=== PATIENT | male | born 1990 | race American Indian/Alaskan Native ===

== ENCOUNTER 2021-07-02 00:15 | Emergency (ER) | payer BC ==
--- NOTE | 2021-07-02 01:01 | XRay Report ---
CHEST 2 VIEWS INDICATION / CLINICAL INFORMATION: Chest pain. COMPARISON: None available. FINDINGS: SUPPORT DEVICES: None. HEART / MEDIASTINUM: The heart size and pulmonary vasculature are normal. The aorta is normal in [place]. LUNGS / PLEURA: No significant pulmonary or pleural abnormality. No pneumothorax. ADDITIONAL FINDINGS: No significant additional findings. IMPRESSION: No acute findings. Signer Name: Won Lorenzana MD Signed: 07/02/2021 12:57 AM Workstation Name: [id number]
--- NOTE | 2021-07-02 09:30 | Emergency Department Report ---
ED General Adult HPI - General Chief complaint: Chest Pain Stated complaint: CHEST PAIN Time Seen by Provider: 07/02/21 09:19 Source: patient Mode of arrival: Ambulatory Limitations: No Limitations - History of Present Illness Initial comments: 31-year-old male who denies any significant past medical history presents to the ER today with complaints of chest pain. Patient states her symptoms started 2 weeks ago. He states that he has been having substernal and left-sided chest pain. He states that his pain was initially constant but then he became intermittent and was improving, but then in the past couple days pain started to flareup again and became more constant. He states that when the pain started initially he was having associated left-sided neck pain and left shoulder pain which was worse when he moved his neck and his shoulder but the pain in his neck and shoulder has resolved. He denies any strenuous activity or injury. He stat es now he is just having the pain in his left chest and substernal area. He described as a sharp pain. He is unable to tell what makes it worse or better now. Reports associated shortness of breath which started last night and also today. He reports no lower extremity swelling or calf pain. He denies any URI symptoms, nausea, vomiting, fever, chills or diaphoresis or cough. He denies any history of tobacco use, or illicit drug use. He drinks occasionally. He denies any family history of coronary artery disease. He denies any history of PE or DVT noted to have any risk factors for PE or DVT. MD Complaint: Chest pain - Related Data Previous Rx's Medication Instructions Recorded Last Taken Type Amlodipine Besylate [Norvasc] 5 mg PO DAILY #30 tab 07/02/21 Unknown Rx Ketorolac [Toradol] 10 mg PO Q6H PRN #20 07/02/21 Unknown Rx Allergies Allergy/AdvReac Type Severity Reaction Status Date / Time No Known Allergies Allergy Unverified 07/02/21 00:20 ED Review of Systems ROS: Stated complaint: CHEST PAIN Other details as noted in HPI Comment: All other systems reviewed and negative Constitutional: denies: chills, diaphoresis, fever, malaise, weakness Eyes: denies: eye pain, eye discharge, vision change ENT: denies: ear pain, throat pain, dental pain, hearing loss, epistaxis, congestion Respiratory: shortness of breath. denies: cough, wheezing Cardiovascular: chest pain. denies: edema, syncope, paroxysmal nocturnal dyspnea Gastrointestinal: denies: abdominal pain, nausea, diarrhea, constipation, hematemesis, hematochezia Genitourinary: denies: urgency, dysuria, frequency, hematuria, discharge, testicular pain, testicular mass Skin: denies: rash, lesions, change in color, change in hair/nails, pruritus Neurological: denies: headache, weakness, numbness, paresthesias, confusion, abnormal gait, vertigo Psychiatric: denies: anxiety, depression, auditory hallucinations, visual hallucinations, homicidal thoughts, suicidal thoughts Hematological/Lymphatic: denies: as per HPI, easy bleeding, swollen glands ED Past Medical Hx - Medications Home Medications: Home Medications Medication Instructions Recorded Confirmed Last Taken Type Amlodipine Besylate [Norvasc] 5 mg PO DAILY #30 tab 07/02/21 Unknown Rx Ketorolac [Toradol] 10 mg PO Q6H PRN #20 07/02/21 Unknown Rx ED Physical Exam - General Limitations: No Limitations General appearance: alert, in no apparent distress - Head Head exam: Present: atraumatic, normocephalic, normal inspection - Eye Eye exam: Present: normal appearance, PERRL, EOMI Pupils: Present: normal accommodation - Neck Neck exam: Present: normal inspection, full ROM. Absent: meningismus - Respiratory Respiratory exam: Present: normal lung sounds bilaterally. Absent: respiratory distress, wheezes, rales, rhonchi - Cardiovascular Cardiovascular Exam: Present: regular rate, normal rhythm, normal heart sounds - GI/Abdominal GI/Abdominal exam: Present: soft. Absent: distended, tenderness, guarding, rebound - Extremities Exam Extremities exam: Present: normal inspection, full ROM - Neurological Exam Neurological exam: Present: alert, oriented X3, CN II-XII intact, normal gait - Psychiatric Psychiatric exam: Present: normal affect, normal mood - Skin Skin exam: Present: intact ED Course Vital Signs 07/02/21 07/02/21 07/02/21 00:22 00:23 00:24 Temperature 98.8 F Pulse Rate 97 H 98 H Respiratory Rate Blood Pressure 172/108 Blood Pressure [Right] O2 Sat by Pulse 100 99 100 Oximetry 07/02/21 07/02/21 09:32 11:36 Temperature Pulse Rate 75 80 Respiratory 16 16 Rate Blood Pressure Blood Pressure 160/113 148/109 [Right] O2 Sat by Pulse 99 99 Oximetry ED Medical Decision Making - Lab Data Result diagrams: 07/02/21 10:35 - EKG Data EKG shows normal: sinus rhythm Rate: normal No standard instances P Waves: LAE - Radiology Data Radiology results: report reviewed Patient: SANDRA LANCE MR#: [id number] : 1990 Acct:[id number] Age/Sex: 31 / M ADM Date: 07/02/21 Loc: ED Attending Dr: Ordering Physician: BRIONNA SALDANA MD Date of Service: 07/02/21 Procedure(s): XR chest routine 2V Accession Number(s): [id number] cc: ED MD SHANA Fluoro Time In Minutes: CHEST 2 VIEWS INDICATION / CLINICAL INFORMATION: Chest pain. COMPARISON: None available. FINDINGS: SUPPORT DEVICES: None. HEART / MEDIASTINUM: The heart size and pulmonary vasculature are normal. The aorta is normal in caliber. LUNGS / PLEURA: No significant pulmonary or pleural abnormality. No pneumothorax. ADDITIONAL FINDINGS: No significant additional findings. IMPRESSION: No acute findings. Signer Name: Won Lorenzana MD Signed: 07/02/2021 12:57 AM Workstation Name: [id number] Transcribed By: RT Dictated By: Won Lorenzana MD Electronically Authenticated By: Won Lorenzana MD Signed Date/Time: 07/02/2156 DD/ TD/TT: - Medical Decision Making Chest x-ray shows nothing acute. EKG shows no acute abnormalities. Troponin is normal. BMP is normal. Patient initially denied any past medical history but on repeat of his vitals it was noted as well pressure remained elevated. Upon further questioning patient admits that he was told that he has had hypertension in the past but he never follow-up with the primary care doctor to be started on blood pressure medications. He states that he does not like taking medications. Patient currently has a heart score of 1. He has a PERC score of 0. At this time I do not suspect unstable angina, pulmonary embolus, aortic dissection, or any other emergent condition warranting additional testing or a dmission at this time. Chest pain is likely Motrin as well at this time. Discussed results with patient. Discussed suspected diagnosis with patient patient will be started on low-dose Norvasc for his blood pressure and informed patient that it is important that he takes the medication. Also recommend that he checks his blood pressure twice a day, keep a record of the readings and he will be given referral information to local primary care doctors for follow-up. Patient expressed understanding for instructions and agree with plan. Patient was stable at time of discharge. Critical care attestation.: If time is entered above; I have spent that time in minutes in the direct care of this critically ill patient, excluding procedure time. ED Disposition Clinical Impression: Nonspecific chest pain, Chest wall pain, Uncontrolled hypertension Disposition: HOME / SELF CARE / HOMELESS Is pt being admited?: No Condition: Stable Instructions: Chest Wall Pain, [id number], Nonspecific Chest Pain, Adult, Hypertension, Adult, [id number], Managing Your Hypertension, Hypertension (ED) Additional Instructions: Recommend start taking the Norvasc which is for your blood pressure daily. Continue to monitor your blood pressure no more than twice a day and keep a record of your readings. You will need to follow-up with the primary care doctor for continued monitoring of your blood pressure. You can take the Toradol as prescribed to help with pain. Return to the ER if your symptoms changes or worsens in any way. Prescriptions: Amlodipine Besylate [Norvasc] 5 mg PO DAILY #30 tab Ketorolac [Toradol] 10 mg PO Q6H PRN #20 PRN Reason: Pain Referrals: ADITHYA YOUSIF MD [Staff Physician] - 3-5 Days [facility] [Provider Group] - 3-5 Days Forms: Work/School Release Form(ED) Time of Disposition: 11:31 Heart Score - HEART Score History: Slightly suspicious EKG: Normal Age: < 45 Risk factors: 1-2 risk factors (HTN) Troponin: < normal limit HEART Score: 1 - EKG Read Time Time EKG Completed: 00:26 EKG Read Time: 00:29 - Critical Actions Critical Actions: 0-3 pts:0.9-1.7%risk of adverse cardiac event.Candidate for discharge
[2021-07-02 11:08] LABS: Blood Urea Nitrogen 9 mg/dL (9-20); Calcium 9.7 mg/dL (8.4-10.2); Hemolysis Index 4
--- NOTE | 2021-07-02 11:26 | Electrocardiograph Report ---
[facility] Test Date: 2021-07-02 Test Time: 00:26:28 Pat Name: SANDRA LANCE Department: Room: Gender: M Last Model Department Supervisor: [id number] : 1990 Requested By: ED DOC Order Number: [id number] Reading MD: Pee Sanchez Measurements Intervals [place] Rate: 91 P: 62 MO: 162 QRS: 57 QRSD: 94 T: 28 QT: 346 QTc: 427 Interpretive Statements Sinus rhythm Probable left atrial enlargement No previous ECG available for comparison Electronically Signed On 07-02-2021 11:26:19 EDT by Pee Sanchez
[2021-07-02 11:28] LABS: BUN/Creatinine Ratio 13
[2021-07-02 11:37] VITALS: BP 148/109
== END 2021-07-02 11:41 | disposition home or self-care (01) ==
LOC: ED 00:15
DX: R07.89 Other chest pain (principal); I10 Essential (primary) hypertension; Z79.899 Other long term (current) drug therapy
CPT/HCPCS: 36415; 71046; 80048; 84484; 93005; 99284